=== PATIENT | female | born 1955 | race Native Hawaiian/Other Pacific Islander ===

== ENCOUNTER 2021-11-11 13:06 | Emergency (ER) | payer OTHER ==
[~2021-11-11] VITALS: Ht 162.6 cm; Wt 108.9 kg
[2021-11-11 13:14] VITALS: TEMP 98.7
[2021-11-11 14:34] VITALS: BP 168/98
== END 2021-11-11 14:34 | disposition home or self-care (01) ==
LOC: ED 13:06
PROC: 0HQFXZZ Repair Right Hand Skin, External Approach (ICD-10-PCS; principal; 2021-11-11)
DX: S61.314A Laceration without foreign body of right ring finger with damage to nail, initial encounter (principal); W27.4XXA Contact with kitchen utensil, initial encounter; Y93.G3 Activity, cooking and baking; Y92.090 Kitchen in other non-institutional residence as the place of occurrence of the external cause
CPT/HCPCS: 90471; 90715; 99283